=== PATIENT | male | born 1980 | race Two or more races ===

== ENCOUNTER 2018-09-05 11:25 | Emergency (ER) | payer SELFPAY ==
[~2018-09-05] VITALS: Ht 175.3 cm; Wt 74.8 kg
[2018-09-05 11:15] VITALS: BP 126/80
--- NOTE | 2018-09-05 11:15 | NUR ---
ED Nurse Note: PT BROUGHT IN BY [id number] FROM WORK. AOX4. PT PRESENTS WITH 1 INCH LACERATION TO VENTRAL SIDE OF LEFT ARM. SITE NOT ACTIVELY BLEEDING. SENSATION AND CIRCULATION INTACT, CAP REFILL <3 SECONDS, MUSCLE STRENGTH 5/5, AND FULL ROM OF EXTREMITY AND ALL DIGITS.
[2018-09-05] MEDS ORDERED: Cephalexin 500mg cap ORAL ONE (11:30)
[2018-09-05] MEDS ORDERED: Lidocaine 1% 10mg/ml/Epi 0.005mg/ml 30ml vial INJ ONE (11:30)
[2018-09-05] MEDS ORDERED: Bacitracin Oint UD TOPIC ONE (11:30)
--- NOTE | 2018-09-05 12:35 | Diagnostic Imaging Report ---
EXAM: XR Left Forearm, 2 Views CLINICAL HISTORY: TRAUMA TECHNIQUE: Frontal and lateral views of the left forearm. COMPARISON: No relevant prior studies available. FINDINGS: Bones/joints: Unremarkable. No acute fracture. No dislocation. Soft tissues: Laceration mid forearm soft tissue. No radiopaque foreign body. IMPRESSION: 1. Laceration mid forearm soft tissue. 2. No fracture or malalignment.
--- NOTE | 2018-09-05 12:45 | Emergency Room Report ---
History of Present Illness General Chief Complaint: Laceration Source: Patient Present Illness HPI Patient was cutting [employer] plants with a chain saw. He cut into his left forearm. Bleeding was controlled with direct pressure. He complains about aching pain at the site rated at 6/10. There is no numbness. There is no decrease in hand function. This happened just prior to presentation. Last tetanus 4 years ago. Right-handed. Allergies: Coded Allergies: No Known Allergies (Unverified , 09/05/18) Patient History Past Medical History: see triage record Social History: Denies: smoking Social History Narrative Treat chris Reviewed Nursing Documentation: PMH: Agreed; PSxH: Agreed Nursing Documentation-PMH Past Medical History: No Stated History Review of Systems Constitutional: Denies: fever Musculoskeletal: Reports: see HPI Skin: Reports: see HPI Neurological: Reports: see HPI Hematologic/Lymphatic: Reports: see HPI Physical Exam Vital Signs Date Time Temp Pulse Resp B/P (MAP) Pulse Ox O2 Delivery O2 Flow Rate FiO2 09/05/18 11:11 98.1 68 18 130/84 98 Room Air Sp02 EP Interpretation: reviewed, normal General Appearance: well appearing, no apparent distress, GCS 15 Head: normocephalic, atraumatic Eyes: bilateral eye normal inspection, bilateral eye PERRL ENT: hearing grossly normal, normal voice, moist mucus membranes Neck: full range of motion, supple Respiratory: no respiratory distress, speaking full sentences Cardiovascular #2: 2+ radial (L) - Good capillary refill distally Gastrointestinal: normal inspection Musculoskeletal: digits/nails normal, normal range of motion Neurologic: alert, oriented x3, motor strength/tone normal, sensory intact, normal gait Psychiatric: mood/affect normal Skin: no rash, laceration - Macerated 4 cm into muscle left forearm Procedures Laceration/Wound Repair Laceration/Wound Repair : Consent: Verbal Wound Location: upper extremity Wound's Depth, Shape: into muscle, linear, contused tissue Wound Length (cm): 4 Wound Explored: clean Irrigated w/ Saline (ccs): 780 Betadine Prep?: Yes Anesthesia: Lidocaine w/ Epi Volume Anesthetic (ccs): 3 Wound Debrided: moderate Wound Repaired With: sutures Suture Size/Type: 5:0 Layer Closure?: Yes Deep Layer Suture Size/Type: 5:0, 4:0, other - vicryl Sterile Dressing Applied?: Yes Splint Applied?: No Progress After Betadine prep, the wound was debrided fascia approximated. Muscle with 4- 0 Vicryl. Irrigated. Subcutaneous layer with 5-0 Vicryl. Irrigated. Dermal layer closed with 5-0 Ethilon. Tolerated well Medical Decision Making Diagnostic Impression: Primary Impression: Laceration of forearm Qualified Codes: S51.812A - Laceration without foreign body of left forearm, initial encounter Additional Impression: chain saw injury ER Course Patient presents with changes of injury to the left forearm. By exam no tendons involved however muscle has been violated. He has full strength and range of motion. X-ray revealed soft tissue defect without bony involvement. Betadine was used and the wound was anesthetized. Copious irrigation was performed. 3 layer closure was performed and tolerated well. The patient was given Keflex. Patient advised of treatment plan. Patient stable for outpatient observation and treatment. Other X-Ray Diagnostic Results Other X-Ray Diagnostic Results : X-Ray ordered: L forearm Indication: Other EP Interpretation: Yes Interpretation: no dislocation, no soft tissue swelling, no fractures, other - lac Impression: Other Electronically Signed by: Electronically signed by Anthony Kurtz MD Last Vital Signs Date Time Temp Pulse Resp B/P (MAP) Pulse Ox O2 Delivery O2 Flow Rate FiO2 09/05/18 13:26 98.4 70 18 122/76 99 Room Air Status: improved Disposition: HOME, SELF-CARE Condition: Improved Scripts Bacitracin (Bacitracin) 28.4 Gm Oint...g. 1 APPLIC TOPIC BID, #20 GM Prov: Anthony Kurtz MD 09/05/18 Ibuprofen* (MOTRIN*) 600 Mg Tablet 600 MG ORAL Q6H PRN for For Pain, #20 TAB Prov: Anthony Kurtz MD 09/05/18 Cephalexin* (KEFLEX*) 500 Mg Capsule 500 MG ORAL EVERY 6 HOURS, #28 CAP Prov: Anthony Kurtz MD 09/05/18 Anthony Kurtz MD Sep 05, 2018 12:45
[2018-09-05] MEDS ORDERED: BACITRACIN15 GM TOPIC (12:47)
[2018-09-05] MEDS ORDERED: IBUPROFEN600 MG ORAL (12:47)
[2018-09-05] MEDS ORDERED: CEPHALEXIN500 MG ORAL (12:47)
[2018-09-05 13:26] VITALS: BP 122/76
--- NOTE | 2018-09-05 13:27 | NUR ---
ED Nurse Note: PT SITTING PEACEFULLY IN BED IN NAD. AOX4. PRESCRIPTIONS AND DISCHARGE PAPERWORK EXPLAINED TO PT. PT VERBALIZES UNDERSTANDING AND ALL QUESTIONS ANSWERED. PRESCRIPTIONS AND DISCHARGE PAPERWORK GIVEN TO PT AND ID WRISTBAND REMOVED. PT WALKED OUT OF ER WITH STEADY GAIT AND ALL BELONGINGS.
== END 2018-09-05 13:27 | disposition home or self-care (01) ==
LOC: EDBD 11:25 → EMR 13:00
DX: S51.812A Laceration without foreign body of left forearm, initial encounter (principal); W29.3XXA Contact with powered garden and outdoor hand tools and machinery, initial encounter; Y92.9 Unspecified place or not applicable
CPT/HCPCS: 99283